=== PATIENT | female | born 1980 | race Caucasian/White ===

== ENCOUNTER → 2022-04-14 10:42 | Outpatient (BNVA) | payer OTHER, SELFPAY | PROVIDERS: PCP Internal Medicine; Visit Provider Student in an Organized Health Care Education/Training Program | DX: M79.7 Fibromyalgia (principal); M77.02 Medial epicondylitis, left elbow | CPT/HCPCS: 99212 ==

== ENCOUNTER → 2022-10-29 13:21 | Outpatient (BNVA) | payer OTHER, SELFPAY | PROVIDERS: PCP Nurse Practitioner Pediatrics; Visit Provider Student in an Organized Health Care Education/Training Program | DX: M79.7 Fibromyalgia (principal); M47.812 Spondylosis without myelopathy or radiculopathy, cervical region | CPT/HCPCS: 99212 ==

== ENCOUNTER → 2023-12-08 13:30 | Outpatient (RCR) | payer OTHER, SELFPAY ==
--- NOTE | 2022-08-13 16:29 | MHC.OT.EP ---
[address] [phone] Occupational Therapy Plan of Care Date of Evaluation: 08/13/22 Diagnosis: Bilateral medial epicondylitis Pain Location: Pain right elbow: 7/10 Pain left elbow: 7/10 Best: 5/10 Pain Score: 7 Pain Scale Used: Numeric (0 - 10) Aggravating Factors: Forceful grasp, lifting boxes Alleviating Factors: Heat, icy hot cream Assessment: Pt is a 42 y/o female referred to OT with approx one year history of worsening bilateral medial elbow pain. She is also tender to palpation at lateral epicondyles, although she does have a history of fibromyalgia and recurrent swelling with tenderness in bilateral forearms. 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 She experiences pain with holding and lifting boxes 7/10 pain with activity. A 56.8% limitation is noted per the Quick DASH assessment. She does have a history of L CTR surgery and 2 c-spine blocks for pain management. Pt would benefit from skilled OT to address kayleigh elbow pain management, ergonomics training, and to improve strength for return to PLOF. Frequency and Duration: The patient will be seen 2x/wk for 6 weeks Short Term Goals: Decrease kayleigh elbow pain to <4/10 IND with thermal modalities and splinting for pain mgt IND with HEP IND with joint protection techniques and proper work ergonomics Half-Way Goals: Pain free kayleigh elbows with BADLs/IADL's IND with progression of HEP Gross grasp >40 bilaterally Complete bimanual lifting >30# without c/o pain Quick DASH <30% Treatment Plan: Therapeutic Exercise Therapeutic Activity Home Exercise Program Patient Education Edema Control Ultrasound Iontophoresis MHP Cold Packs Soft Tissue Mobilization Kinesiotaping Electronically Signed By: Floridalma Tello MS OTR/L Please Sign and return to therapist. Thank you once again for your referral.
== END | disposition home or self-care (01) ==
LOC: HO.OT 08-13 10:53
PROVIDERS: PCP Nurse Practitioner Pediatrics; Visit Provider Student in an Organized Health Care Education/Training Program
DX: M77.02 Medial epicondylitis, left elbow (principal)
CPT/HCPCS: 97035; 97110; 97165